=== PATIENT | female | born 1995 | race African-American/Black ===

== ENCOUNTER 2017-03-05 20:20 | Emergency (ER) | payer MEDICAID ==
[~2017-03-05] VITALS: Ht 165.1 cm; Wt 81.6 kg
[2017-03-05 21:46] LABS: Basophils # (auto) 0.1 uL; Basophils % (auto) 0.6 % (0.0-2.0); Eosinophils # (auto) 0.1 uL; Eosinophils % (auto) 0.4 % (0.0-7.0); Hematocrit 40.2 % (36.0-46.0); Hemoglobin 13.3 g/dL (12.2-16.2); Lymphocytes # (auto) 2.4 uL; Lymphocytes % (auto) 13.7 % (10.0-50.0); Mean Corpuscular Hemoglobin 27.8 pg (28.0-32.0); Mean Platelet Volume 7.2 fL (6.9-10.8); Monocytes % (auto) 5.7 % (0.0-12.0); Neutrophils % (auto) 79.6 % (37.0-80.0); Platelet Count (auto) 323 10^3/uL (140-450); Red Cell Distribution Width 14.1 % (11.8-14.3); White Blood Cell 17.6 10^3/uL (4.4-10.8)
[2017-03-05 22:08] LABS: Albumin 3.9 g/dL (3.4-5.0); Anion Gap 6 (5-15); Aspartate Aminotransferase 9 U/L (15-37); Blood Urea Nitrogen 6 mg/dL (7-18); Calcium 8.9 mg/dL (8.5-10.1); Carbon Dioxide 26 mmol/L (21-32); Chloride 106 mmol/L (98-107); GFR African American 125 mL/min; GFR Non-African American 104 mL/min; Glucose 64 mg/dL (74-106); Potassium 4.1 mmol/L (3.5-5.1); Sodium 138 mmol/L (136-145)
[2017-03-05 22:16] LABS: Alkaline Phosphatase 83 U/L (45-117); Bilirubin, Total 0.4 mg/dL (0.2-1.0)
[2017-03-06] MEDS ORDERED: KETOROLAC TROMETH 60MG/2ML VIAL IM ONE (02:45)
[2017-03-06 05:30] VITALS: BP 118/72
== END 2017-03-06 05:37 | disposition home or self-care (01) ==
LOC: EDBD 20:20 → ER 20:41
DX: M94.0 Chondrocostal junction syndrome [Tietze] (principal)
CPT/HCPCS: 36415; 71020; 80053; 83735; 84484; 85025; 93005; 96372; 99285; J1885